=== PATIENT | male | born 1965 | race Caucasian/White ===

== ENCOUNTER 2019-07-31 06:43 | Day surgery (SDC) | payer OTHER ==
[~2019-07-31] VITALS: Ht 180.3 cm; Wt 94.8 kg
[~2019-07-31 06:43] MED LIST: methylPREDNISolone ACETATE 80 MG/ML VIAL. IM ONE
[2019-07-31] MEDS ORDERED: HYDROmorphone 2 MG/ML VIAL IV PRN (07:00)
[2019-07-31] MEDS ORDERED: fentaNYL PF VIAL 100 MCG/2 ML VIAL IV PRN ×2 (07:00)
[2019-07-31] MEDS ORDERED: ONDANSETRON PF 4 MG/2 ML VIAL. IV PRN (07:00)
[2019-07-31] MEDS ORDERED: PROCHLORPERAZINE 10 MG/2 ML VIAL. IV PRN (07:00)
[2019-07-31] MEDS ORDERED: LIDOCAINE 1% PF 2 ML VIAL. ID PRN (07:00)
[2019-07-31] MEDS ORDERED: IV RINGERS,LACTATED 1000ML 1,000 ML IV SCH (07:00)
[2019-07-31] MEDS ORDERED: MORPHINE SULFATE 2 MG/ML VIAL. IV PRN (07:00)
[2019-07-31] MEDS ORDERED: PROPOFOL 20 ML IV ONE (07:31)
[2019-07-31] MEDS ORDERED: HYDR-3165 PO (07:41)
--- NOTE | 2019-07-31 07:44 | DISCH ---
DISCHARGE INSTRUCTIONS Condition on Discharge Condition on Discharge: Stable Activity After Discharge Activity Instructions for Disc: Other, see below (immediate aggressive stre tching to keep the motion that was regained in the left shoulder no restrictions on activity no sling or other support) Weight Bearing Status after Di: As tolerated Diet after Discharge Diet after Discharge: Regular Wound Incision Care Wound/Incision Care: Ice to area for comfort Community/Resources/Services Services at Discharge: PT EVALUATE & TREAT (immediate aggressive passive and a ctive range of motion to continue regained motion during manipulation, strength as tolerated) Contacting the after DC Call your doctor for: Concerns you may have Follow-Up Follow up with: Dr. Cabrales 10 days FIORDALIZA CABRALES MD Jul 31, 2019 07:44
[2019-07-31 09:27] VITALS: BP 179/95
--- NOTE | 2019-07-31 14:15 | PDOC4 ---
Operative Note Operative Note Date of surgery: 07/31/2019 Preoperative diagnosis: Adhesive capsulitis left shoulder Postoperative diagnosis: Same Operative procedure: Manipulation under anesthesia left shoulder for adhesive capsulitis and injection glenohumeral joint Surgeon: Keron Anesthesia: Deep sedation provided by anesthesia Complications: None Operative indications: Please see my clinic note for detailed operative indications indicating that he did have some partial-thickness tear of the rotator cuff but probably was most symptomatic from ongoing adhesive capsulitis and I talked to him about the natural course of the adhesive capsulitis the possibility of observation versus stretching which she is Aislinn fail versus manipulation under anesthesia and subsequent physical therapy which she wishes to proceed with. We talked about the possibility of recurrence and continued pain among other complications possible Operative text: Patient was identified procedure verified patient placed in the supine position on the operating table. After adequate amounts of deep propofol sedation were administered by anesthesia the shoulder was examined under anesthesia and found to have significant terminal motion deficits of about 50 of elevation 25 lack of internal rotation and after manipulation a palpable and audible release of tissue was noted he regain full motion in all planes with no instability glenohumeral joint was injected with 1 mL 80 mg/mm Depo-Medrol under sterile conditions and he was recovered in stable condition with instructions to immediately continue to stretch and established physical therapy as soon as possible to continue to maintain the range of motion that was regained FIORDALIZA WONG MD Jul 31, 2019 14:15
== END 2019-07-31 09:50 | disposition home or self-care (01) ==
LOC: SURG 06:43
PROVIDERS: ATTEND Orthopaedic Surgery
DX: M75.02 Adhesive capsulitis of left shoulder (principal)
CPT/HCPCS: 20610; 23700; J2704; J1040

== ENCOUNTER 2021-01-07 14:07 | Emergency (ER) | payer MEDICARE, OTHER ==
[~2021-01-07] VITALS: Ht 182.9 cm; Wt 93.1 kg
[~2021-01-07 14:07] MED LIST changes: +HYDR-3165 PO; -methylPREDNISolone ACETATE 80 MG/ML VIAL. IM ONE
[2021-01-07 15:11] VITALS: BP 128/71
--- NOTE | 2021-01-07 16:10 | PHYS DOC ---
Past Medical History Past Medical History: No Pertinent History Past Surgical History: No Surgical History Smoking Status: Never Smoker Alcohol Use: None General Adult EDM: Chief Complaint: LOWER EXT PAIN HPI: HPI: Patient is a 55 year old who presented to ER today for evaluation of left ankle pain after he twisted his left ankle when he stepped into a hole today. Patient denies any knee pain, no leg pain. Patient denies any back pain. Patient was able to walk here for evaluation. Review of Systems: Review of Systems: Constitutional: Denies fever or chills. [] Eyes: Denies change in visual acuity. [] HENT: Denies nasal congestion or sore throat. [] Respiratory: Denies cough or shortness of breath. [] Cardiovascular: Denies chest pain or edema. [] GI: Denies abdominal pain, nausea, vomiting, bloody stools or diarrhea. [] : Denies dysuria. [] Musculoskeletal: Positive for left ankle pain, no back pain., No knee pain Integument: Denies rash. [] Neurologic: Denies headache, focal weakness or sensory changes. [] Endocrine: Denies polyuria or polydipsia. [] Lymphatic: Denies swollen glands. [] Psychiatric: Denies depression or anxiety. [] Heart Score: C/O Chest Pain: N/A Risk Factors: Risk Factors: DM, Current or recent (<one month) smoker, HTN, HLP, family history of CAD, obesity. Risk Scores: Score 0 - 3: 2.5% MACE over next 6 weeks - Discharge Home Score 4 - 6: 20.3% MACE over next 6 weeks - Admit for Clinical Observation Score 7 - 10: 72.7% MACE over next 6 weeks - Early Invasive Strategies Allergies: Allergies: Allergies Coded Allergies Type Severity Reaction Last Updated Verified No Known Drug Allergies 07/31/19 No Physical Exam: PE: Constitutional: Well developed, well nourished, no acute distress, non-toxic appearance. [] HENT: Normocephalic, atraumatic, bilateral external ears normal, oropharynx moist, no oral exudates, nose normal. [] Eyes: PERRLA, EOMI, conjunctiva normal, no discharge. [] Neck: Normal range of motion, no tenderness, supple, no stridor. [] Cardiovascular:Heart rate regular rhythm, no murmur [] Lungs & Thorax: Bilateral breath sounds clear to auscultation [] Abdomen: Bowel sounds normal, soft, no tenderness, no masses, no pulsatile masses. [] Skin: Warm, dry, no erythema, no rash. [] Back: No tenderness, no CVA tenderness. [] Extremities: No tenderness, no cyanosis, no clubbing, ROM intact, no edema. [] Neurologic: Alert and oriented X 3, normal motor function, normal sensory function, no focal deficits noted. [] Psychologic: Affect normal, judgement normal, mood normal. [] Current Patient Data: Vital Signs: Vital Signs Date Time Temp Pulse Resp B/P (MAP) Pulse Ox O2 Delivery O2 Flow Rate FiO2 01/07/21 15:11 97.4 76 20 128/71 (90) 97 Room Air 97.4 EKG: EKG: [] Radiology/Procedures: Radiology/Procedures: [][facility] [address] [place] [address] IMAGING REPORT Signed PATIENT: SINAI VIGIL ACCOUNT: [id number] : 1965 LOCATION: ER AGE: 55 SEX: M EXAM STATUS: PRE ER ORD. PHYSICIAN: GILLES LOYA DO REASON: TWISTED PROCEDURE: ANKLE LEFT 3V Exam Date: 01/07/2021 4:00 PM XR EXAM OF ANKLE_LEFT 3V Indication: Reason: TWISTED / Spl. Instructions: / History: FINDINGS/ IMPRESSION: Ankle mortise is intact. No acute fracture or dislocation. Alignment and joint spaces are maintained. The soft tissues are within normal limits. Electronically signed by: Diamond Bridges MD (01/07/2021 4:20 PM) [id number] DICTATED and SIGNED BY: DIAMOND BRIDGES MD DATE: 01/07/21 [id number] 0 Course & Med Decision Making: Course & Med Decision Making Pertinent Labs and Imaging studies reviewed. (See chart for details) [] Dragon Disclaimer: Dragon Disclaimer: This electronic medical record was generated, in whole or in part, using a voice recognition dictation system. Departure Departure Impression: Primary Impression: Left ankle sprain Disposition: HOME / SELF CARE / HOMELESS Condition: STABLE Referrals: JIGAR SANTOYO MD (PCP) FOLLOW UP WITH YOUR DOCTOR NEEDED NEXT WEEK Patient Instructions: Ankle Sprain, Acute, with Phase I Rehab[facility] Scripts Naproxen Sodium (ANAPROX DS) 550 Mg Tablet 1 TAB PO BID PRN for PAIN for 15 Days, #30 TAB 0 Refills Prov: GILLES LOYA DO 01/07/21 GILLES LOYA DO January 07, 2021 16:10
[2021-01-07] MEDS ORDERED: NAPR-682 PO (16:16)
--- NOTE | 2021-01-07 16:22 | RAD ---
Exam Date: 01/07/2021 4:00 PM XR EXAM OF ANKLE_LEFT 3V Indication: Reason: TWISTED / Spl. Instructions: / History: FINDINGS/ IMPRESSION: Ankle mortise is intact. No acute fracture or dislocation. Alignment and joint spaces are maintained. The soft tissues are w ithin normal limits. Electronically signed by: Zenon Bridges MD (01/07/2021 4:20 PM) [id number]
== END 2021-01-07 16:28 | disposition home or self-care (01) ==
LOC: ER 14:07
DX: S93.402A Sprain of unspecified ligament of left ankle, initial encounter (principal); X50.9XXA Other and unspecified overexertion or strenuous movements or postures, initial encounter; Y93.89 Activity, other specified; Y92.89 Other specified places as the place of occurrence of the external cause; Y99.8 Other external cause status
CPT/HCPCS: 73610; 99283